=== PATIENT | female | born 1975 | race African-American/Black ===

== ENCOUNTER 2020-08-28 11:17 | Emergency (ER) | payer OTHER ==
[~2020-08-28] VITALS: Ht 157.5 cm; Wt 67.1 kg
[2020-08-28 11:22] VITALS: BP 154/94
[2020-08-28] MEDS ORDERED: CLEOCIN HCL300 MG PO (11:37)
[2020-08-28] MEDS ORDERED: NORCO5 PO (11:37)
== END 2020-08-28 11:59 | disposition home or self-care (01) ==
LOC: ER 11:17
DX: K02.9 Dental caries, unspecified (principal); I10 Essential (primary) hypertension; E78.00 Pure hypercholesterolemia, unspecified; Z88.1 Allergy status to other antibiotic agents